=== PATIENT | male | born 1995 | race Two or more races ===

== ENCOUNTER → 2019-05-27 | Outpatient (CLI) | payer SELFPAY ==
[2019-05-27 16:52] LABS: A TYPE INFLUENZA AG NEGATIVE (NEGATIVE); B INFLUENZA AG NEGATIVE (NEGATIVE)
== END ==
LOC: RDC 15:53
PROVIDERS: ATTEND Registered Nurse
DX: Z20.828 Contact with and (suspected) exposure to other viral communicable diseases (principal)
CPT/HCPCS: 36415; 87070; 87635; 87804; 87880